=== PATIENT | female | born 1940 | race Asian ===

== ENCOUNTER 2021-01-07 13:13 | Emergency (ER) | payer OTHER, MEDICARE ==
[2021-01-07 13:41] VITALS: BP 154/73; PULSE 86; TEMP 98.2; BMI 19.3
[2021-01-07] MEDS ORDERED: SODIUM PHOSPHATE/NA BIPHOS 133 ML ENEMA PR ONE (14:40)
== END 2021-01-07 15:00 | disposition home or self-care (01) ==
LOC: FER 13:13
DX: K59.00 Constipation, unspecified (principal)
CPT/HCPCS: 74018-TC-FY; 99283-25

== ENCOUNTER 2023-09-24 09:27 | Emergency (ER) | payer OTHER, MEDICARE ==
[2023-09-24 09:54] VITALS: TEMP 98.1
[2023-09-24 10:26] VITALS: BP 168/87; PULSE 80; RESP 18
== END 2023-09-24 11:15 | disposition home or self-care (01) ==
LOC: FER 09:27
DX: R09.89 Other specified symptoms and signs involving the circulatory and respiratory systems (principal); R07.89 Other chest pain; R05.9 Cough, unspecified
CPT/HCPCS: 71046-TC-FY; 99283-25